=== PATIENT | female | born 1960 | race Caucasian/White ===

== ENCOUNTER 2023-04-27 17:01 | Emergency (ER) | payer SELFPAY ==
--- NOTE | ~2023-04-27 | US_ITS ---
EXAMINATION: US VENOUS ULTRASOUND WITH DOPPLER LOWER EXTREMITY, LEFT CLINICAL INFORMATION: Pain. COMPARISON: None available. TECHNIQUE: Ultrasound of the deep veins is performed from the hip to the calf with compression sonography and color and pulse Doppler assessment. Spectral analysis with color-flow imaging is performed. FINDINGS: There is normal venous compression and respiratory variation and augmented flow. The visualized common femoral vein, superficial femoral vein, profunda femoral vein, popliteal vein, and the trifurcation region shows no evidence of deep venous thrombosis. There is no significant popliteal fossa cyst. If the patient's symptoms persist, followup ultrasound in 5 days 7 days might be of value to exclude proximal propagation from a non-visualized calf vein. US/US venous duplex LE LT IMPRESSION: No DVT demonstrated in the left lower extremity.
--- NOTE | ~2023-04-27 | XR_ITS ---
EXAMINATION: XR CHEST CLINICAL INFORMATION: Difficulty breathing COMPARISON: None available. TECHNIQUE: 2 views of the chest were obtained. FINDINGS: Heart size is normal. Both lungs are clear. There is no pleural effusion. No pneumothorax. No acute osseous abnormality. There is shaped curvature of the thoracolumbar spine. There are right upper quadrant surgical clips. XR/XR chest 2V IMPRESSION: No acute cardiopulmonary disease.
--- NOTE | 2023-04-27 17:15 | ED_ITS ---
HPI - SOB/Dyspnea General Chief Complaint: General Medical Stated Complaint: diff breathing, COPD, L leg edema x3 weeks Time Seen by Provider: 04/27/23 17:13 Source: patient and EMS Mode of arrival: EMS Limitations: no limitations History of Present Illness HPI Narrative: 62yo female with history of HTN, chronic back pain, asthma/COPD, alcohol use disorder here with multiple complaints. Patient reports she is currently homeless. She has been drinking alcohol 2-3 pt of vodka daily. She went today to [facility] but when she got there they were close. She ran out of all of her home medications 4 days ago. She is not suicidal or homicidal. She is unsure if she is interested to go to detox or speak to our acid recovery operator is here today. She does not want to speak to our dependency case manager. She is complaining of chronic shortness of breath which she has had for years. There was no associated cough or fever chest pain with this. She has had some leg swelling in the left leg for the last few weeks with no known injury or trauma. It is worsened with walking on it and worsened at the end of the day. It is less swollen in the morning with waking. Related Data Allergies Allergy/AdvReac Type Severity Reaction Status Date / Time No Known Allergies Allergy Verified 04/27/23 17:19 Review of Systems 2 Review of Systems: Yes all other systems are reviewed and are negative Constitutional: Constitutional: Reports no additional constitutional complaints, Denies body ache(s), Denies chills, Denies fever(s), Denies headache(s) and Denies weakness Eyes: Eyes: Reports no additional eye complaints and Denies change in vision ENT: Reports system reviewed and no additional complaints, except as documented, Denies dizziness, Denies headache(s), Denies nasal congestion, Denies nasal discharge and Denies neck pain Cardiovascular: Cardiovascular: Reports no additional cardiovascular complaints, Denies chest pain, Denies leg edema and Reports dyspnea Respiratory: Respiratory: Reports no additional respiratory complaints, Denies cough and Reports dyspnea Gastrointestinal: Gastrointestinal: Reports no additional gastrointestinal complaints, Denies abdominal pain, Denies diarrhea, Denies nausea and Denies vomiting Genitourinary: Genitourinary: Reports no additional female genitourinary complaints and Denies urinary incontinence Musculoskeletal: Musculoskeletal: Reports no additional musculoskeletal complaints, Denies back pain, Denies arthralgias, Denies joint swelling, Denies neck pain, Denies numbness and Denies tingling Integumentary/Breasts: Skin/Breast: Reports system reviewed and no additional complaints, except as docu and Denies rash Neurologic: Reports system reviewed and no additional complaints, except as documented, Denies Abnormal speech present, Denies dizziness, Denies headache(s), Denies numbness, Denies tingling and Denies weakness PMF Past Medical History Attestation statement: The following information was validated with the patient. Source: old records reviewed and nursing notes reviewed Social History Social History Unable to assess alcohol history related to: Refusing to respond Smoked in Last 30 Days: Yes Use of substances other than those prescribed or required for medical reasons: Refusing to respond Advance Directives: No Advance Directives Information Provided: No Physical Exam 2 Vital Signs: Vital Signs: Last Vital Signs Temp 97.8 F 04/27/23 17:16 Pulse 75 04/27/23 19:13 Resp 20 04/27/23 19:13 BP 143/66 H 04/27/23 19:13 Pulse Ox 98 04/27/23 19:13 O2 Del Method Room Air 04/27/23 19:13 BMI result Body Mass Index 33.3 Const: General: cooperative, healthy appearing, comfortable and no acute distress Orientation/consciousness: patient oriented x3 Limitations: no limitations HEENT: Head: Yes normal to inspection Ears: hearing grossly normal bilaterally General nose exam: Normal external nose present Face and sinus: Yes normal facial exam Mouth: Normal oral and palatal mucosa present Throat: Yes posterior oropharynx normal Eyes: General: appearance normal, both eyes and all related structures P upils: Equal, round and reactive pupils present Neck: Neck: Yes normal visual inspection Chest: Chest palpation & inspection: normal inspection of the chest Resp: Effort & Inspection: normal respiratory effort Auscultation: clear to auscultation bilaterally Cardio: Rate: regular rate Rhythm: regular rhythm Peripheral pulses: P eripheral pulses 2+ throughout GI: Inspection: Yes normal to inspection Palpation (GI): Soft to palpation and nontender Auscultation: normal bowel sounds Back/Spine/Pelvis: Thoracic/Lumbar Spine: thoracic and lumbar spine normal to inspection Skin: General skin exam: no rashes or lesions noted Neuro: General: patient oriented x3, no focal motor deficits and normal sensation to monofilament Cranial nerves: Yes Equal, round and reactive pupils present Cognition (Neuro): normal cognition Speech: No Abnormal speech present Gait exam (Neuro): Normal gait present Motor exam (neuro): 5/5 motor strength present throughout Extrem: Other: I do not appreciate any swelling or redness. There are normal DP and PT pulses. There is mild diffuse tenderness. Normal sensation. Normal range of motion General: Yes normal to inspection Course Course Course Narrative: 1939-labs and imaging are unremarkable. Patient now would like to speak to 1 of our acid recovery operator is about potentially going to detox for alcohol use disorder. Reevaluation(s) Reevaluation #1: 0100-Pending eval for detox. Placed in physician observation pending disposition. Medications Administered Discontinued Medications Generic Name Dose Route Start Last Admin Trade Name Freq PRN Reason Stop Dose Admin Amlodipine Besylate 5 mg 04/27/23 17:23 04/27/23 19:14 Amlodipine Besylate 5 Mg Tablet PO 04/27/23 17:24 5 mg ONCE ONE Administration Protocol Gabapentin 300 mg 04/27/23 17:23 04/27/23 19:14 Gabapentin 300 Mg Capsule PO 04/27/23 17:24 300 mg ONCE ONE Administration Medical Decision Making Medical Decision Making [facility] Narrative: 62yo female with history of HTN, chronic back pain, asthma/COPD, alcohol use disorder here with multiple complaints. Patient reports she is currently homeless. She has been drinking alcohol 2-3 pt of vodka daily. She went today to [facility] but when she got there they were close. She ran out of all of her home medications 4 days ago. She is not suicidal or homicidal. She is unsure if she is interested to go to detox or speak to our acid recovery operator is here today. She does not want to speak to our dependency case manager. She is complaining of chronic shortness of breath which she has had for years. There was no associated cough or fever chest pain with this. She has had some leg swelling in the left leg for the last few weeks with no known injury or trauma. It is worsened with walking on it and worsened at the end of the day. It is less swollen in the morning with waking. VSS LS CTA I do not appreciate any swelling or redness. There are normal DP and PT pulses. There is mild diffuse tenderness. Normal sensation. Normal range of motion I am really unsure what the patient is looking for as she does not want to speak to our recovery team or dependency case manager and is relucatant to have any testing done here. She does want her meds refilled but she has no list, unsure of the names or doses and we have no fill history on her. She is agreeing to labs, EKG, CXR and US and we will attempt to find her med list by calling the pharmacy Differential Diagnosis Differential Diagnoses: The differential diagnosis associated with the presentation includes alcohol use disorder Low suspicion for PE, ACS, pneumonia, DVT, compartment syndrome, necrotizing fasciitis, cellulitis Admission/Observation Consideration of admission/observation: Escalation of care including admission/observation considered Lab Data MDM Lab Attestation statement: I reviewed the patient's lab results. Microcytic anemia-mild 04/27/23 17:37 04/27/23 17:37 Labs: Lab Results 04/27/23 Range/Units 17:37 WBC 5.9 (4.8-10.8) X10*3/uL RBC 4.22 (4.20-5.50) X10*6/uL Hgb 9.8 L (12.0-16.0) g/dl Hct 31.3 L (37.0-47.0) % MCV 74.2 L (80.0-98.0) fL MCH 23.2 L (27.0-33.0) pg MCHC 31.3 (31.0-35.0) g/dl RDW 20.1 H (11.0-16.0) % Plt Count 323 (160-400) X10*3/uL MPV 9.7 (9.4-12.3) fL Immature Gran % (Auto) 0.2 (0.0-0.4) % Neut % (Auto) 48.2 (45-73) % Lymph % (Auto) 35.2 (20-40) % Zavala % (Auto) 11.6 H (2-11) % Eos % (Auto) 4.1 H (0-4) % Baso % (Auto) 0.7 (0-2) % Lymph # (Auto) 2.1 (1.2-4.9) X10*3/uL Zavala # (Auto) 0.7 (0.1-1.2) X10*3/uL Eos # (Auto) 0.2 (0.0-0.4) X10*3/uL Baso # (Auto) 0.0 (0.0-0.2) X10*3/uL Abs Immat Gran (auto) 0.01 (0.00-0.03) X10*3/uL Absolute Neuts (auto) 2.8 (2.0-8.3) x10*3/uL Absolute Nucleated RBC 0.000 (0.0-0.012) X10*3/uL Nucleated RBC % (auto) 0.0 (0.0-0.2) /100WBC Sodium 140 (135-145) mmol/L Potassium 3.7 (3.3-5.1) mmol/L Chloride 104 (96-108) mmol/L Carbon Dioxide 27 (22-29) mmol/L Anion Gap 13 (12-20) BUN 8 L (9-16) mg/dL Creatinine 0.73 (0.5-1.4) mg/dL Estim Creat Clear Calc 87.7 Estimated GFR > 60 Random Glucose 92 (60-115) mg/dL Calcium 9.0 (8.4-10.2) mg/dL Magnesium 1.7 (1.6-2.6) mg/dL Total Bilirubin 0.2 (0.0-1.0) mg/dL Direct Bilirubin < 0.2 (0.0-0.5) mg/dL AST 18 (5-31) U/L ALT 11 (0-31) U/L Alkaline Phosphatase 143 H (39-117) U/L Troponin I High Sens 3.3 (<3.5-17.0) ng/L B-Natriuretic Peptide 20 (<100) pg/mL Total Protein 6.9 (6.5-8.0) g/dL Albumin 3.7 (3.5-5.0) g/dL Independent Interpretation I performed an independent interpretation of an: EKG and Plain X-Ray Interpretation: I independently reviewed the EKG which shows normal sinus rhythm with a rate of 73, normal ID, normal QRS normal QT I independently reviewed the x-ray and ultrasound and agree with the radiology report Radiology Impression Discussion of test interpretation with radiology: I have reviewed the radiologist's reading. Radiologist Impression: [facility] [place] [facility] [address] [place] [address] XRay Report Signed Patient: Kristen Montana MR#: [id number] : 1960 Acct:[id number] Age/Sex: 62 / F ADM Date: 04/27/23 Loc: .ED Attending Dr: Ordering Physician: Margaret Gross NP Date of Service: 04/27/23 Procedure(s): XR chest 2V Accession Number(s): [id number] cc: Margaret Gross NP~ EXAMINATION: XR CHEST CLINICAL INFORMATION: Difficulty breathing COMPARISON: None available. TECHNIQUE: 2 views of the chest were obtained. FINDINGS: Heart size is normal. Both lungs are clear. There is no pleural effusion. No pneumothorax. No acute osseous abnormality. There is shaped curvature of the thoracolumbar spine. There are right upper quadrant surgical clips. XR/XR chest 2V IMPRESSION: No acute cardiopulmonary disease. Launch?Image [address] [address] Ultrasound Report Signed Patient: Kristen Montana MR#: [id number] : 1960 Acct:[id number] Age/Sex: 62 / F ADM Date: 04/27/23 Loc: .ED Attending Dr: Ordering Physician: Margaret Gross NP Date of Service: 04/27/23 Procedure(s): US venous duplex LE LT Accession Number(s): [id number] cc: Physician,None ; Margaret Gross NP~ EXAMINATION: US VENOUS ULTRASOUND WITH DOPPLER LOWER EXTREMITY, LEFT CLINICAL INFORMATION: Pain. COMPARISON: None available. TECHNIQUE: Ultrasound of the deep veins is performed from the hip to the calf with compression sonography and color and pulse Doppler assessment. Spectral analysis with color-flow imaging is performed. FINDINGS: There is normal venous compression and respiratory variation and augmented flow. The visualized common femoral vein, superficial femoral vein, profunda femoral vein, popliteal vein, and the trifurcation region shows no evidence of deep venous thrombosis. There is no significant popliteal fossa cyst. If the patient's symptoms persist, followup ultrasound in 5 days 7 days might be of value to exclude proximal propagation from a non-visualized calf vein. US/US venous duplex LE LT IMPRESSION: No DVT demonstrated in the left lower extremity. Independent Historian Clinical information obtained from an independent historian. History obtained from or confirmed by: EMS Chronic Conditions Patient?s care impacted by: Hypertension Social Determinants Patient?s care significantly limited by Social Determinants of Health including: Alcoholism and drug addiction in family, Problems related to primary support group and Other Social Determinant of Health Discharge Plan Discharge Clinical Impression: Alcohol use disorder, Medication refill Patient Disposition: Still a Patient Instructions: Medicine Refill (ED), Alcohol Use Disorder (ED) Additional Instructions: Your lab work, EKG, chest x-ray are all reassuring. Your ultrasound does not show a blood clot. We do recommend that you follow-up with the primary care doctor. You were given a short supply of your daily medications. We did offer for you to speak to our acid recovery operator and our dependency case manager here but you declined this. Please return for any worsening signs Referrals: Physician,None [Primary Care Provider] - 1 week
[2023-04-27 17:16] VITALS: BP 162/52; BP 166/78; PULSE 75; PULSE 76; RESP 19; TEMP 36.6; O2SAT 96; BMI 33.3
--- NOTE | 2023-04-27 17:23 | ECG_ITS ---
Test Reason : DYSPNEA Blood Pressure : / mmHG Vent. Rate : 073 BPM Atrial Rate : 073 BPM P-R Int : 140 ms QRS Dur : 084 ms QT Int : 398 ms P-R-T Axes : 050 -17 059 degrees QTc Int : 438 ms Normal sinus rhythm Minimal voltage criteria for LVH, may be normal variant ( R in aVL ) Borderline ECG No previous ECGs available Referred By: Margaret Mcbride Electronically Signed By:JOSELYN MAYFIELD MD
[2023-04-27 17:41] LABS: MANUAL DIFF FLAG NO
[2023-04-27 17:42] LABS: Basophils Percent Auto 0.7 % (0-2); Eosinophils Absolute Auto 0.2 X10*3/uL (0.0-0.4); Eosinophils Percent Auto 4.1 % (0-4); Hematocrit 31.3 % (37.0-47.0); Hemoglobin 9.8 g/dl (12.0-16.0); Imm Gran Abs Auto 0.01 X10*3/uL (0.00-0.03); Imm Gran Pct Auto 0.2 % (0.0-0.4); Lymphocytes Absolute Auto 2.1 X10*3/uL (1.2-4.9); Lymphocytes Percent Auto 35.2 % (20-40); Mean Corpuscular HGB Conc 31.3 g/dl (31.0-35.0); Mean Corpuscular Hemoglobin 23.2 pg (27.0-33.0); Mean Corpuscular Volume 74.2 fL (80.0-98.0); Mean Platelet Volume 9.7 fL (9.4-12.3); Monocytes Absolute Auto 0.7 X10*3/uL (0.1-1.2); Monocytes Percent Auto 11.6 % (2-11); Neutrophils Absolute Auto 2.8 x10*3/uL (2.0-8.3); Neutrophils Percent Auto 48.2 % (45-73); Platelet Count 323 X10*3/uL (160-400); Red Blood Count 4.22 X10*6/uL (4.20-5.50); Red Cell Distribution Width 20.1 % (11.0-16.0); White Blood Count 5.9 X10*3/uL (4.8-10.8)
[2023-04-27 17:58] LABS: Alanine Aminotransferase 11 U/L (0-31); Albumin Level 3.7 g/dL (3.5-5.0); Alkaline Phosphatase 143 U/L (39-117); Anion Gap 13 (12-20); Aspartate Amino Transferase 18 U/L (5-31); Bilirubin Direct < 0.2 mg/dL (0.0-0.5); Bilirubin Total 0.2 mg/dL (0.0-1.0); Blood Urea Nitrogen 8 mg/dL (9-16); Carbon Dioxide 27 mmol/L (22-29); Chloride 104 mmol/L (96-108); Creatinine Clr Calc Pharmacy 87.7; Estimated Glomerular Filt Rate > 60; Glucose Random 92 mg/dL (60-115); Magnesium 1.7 mg/dL (1.6-2.6); Potassium 3.7 mmol/L (3.3-5.1); Sodium 140 mmol/L (135-145); Total Protein 6.9 g/dL (6.5-8.0)
[2023-04-27 18:04] LABS: B Type Natriuretic Peptide 20 pg/mL (<100)
[2023-04-27 18:05] LABS: Troponin-I High Sensitivity 3.3 ng/L (<3.5-17.0)
[2023-04-27 19:13] VITALS: BP 143/66; PULSE 75; RESP 20; O2SAT 98
[2023-04-27] MEDS: Gabapentin 300 MG CAPSULE PO (19:14)
[2023-04-27] MEDS: amLODIPine Besylate 5 MG TABLET PO (19:14)
--- NOTE | 2023-04-27 22:44 | PC.NURSE ---
pt resting comfortably resp even and unlabored. nad. awaiting to be seen by care team.
[2023-04-28 06:00] VITALS: BP 121/43; PULSE 66; RESP 16; TEMP 36.7; O2SAT 90
--- NOTE | 2023-04-28 06:38 | PC.NURSE ---
pt changed over into hospital gown placed in pod locker by pct. pt denies si/hi awaiting care team eval.
[2023-04-28 07:58] VITALS: BP 132/64; PULSE 63; RESP 18; TEMP 36.8; O2SAT 93
[2023-04-28 09:02] LABS: Appearance Urine Clear; Color Urine Yellow; Glucose Urine UA Negative (Negative); Leukocyte Esterase Urine Negative (Negative); Nitrite Urine Negative (Negative); Urine Blood Negative (Negative); Urine Ketones Negative (Negative); Urine Protein Negative (Neg-Trace)
[2023-04-28 09:04] LABS: Amphetamine Screen Urine Not Detected (Not Detect); Barbiturates, Urine Not Detected (Not Detect); Benzodiazepines Screen Urine Not Detected (Not Detect); Cannabinoid Screen Urine Not Detected (Not Detect); Cocaine Screen Urine Not Detected (Not Detect); Fentanyl, urine Not Detected (Not Detect); Opiate Screen Urine Not Detected (Not Detect); Phencyclidine Screen Urine Not Detected (Not Detect)
[2023-04-28 09:07] LABS: Bacteria Urine None Seen (None Seen); Hyaline Casts Urine 0-2 /LPF (0-2); RBC Urine 0-2 /HPF (0-2); Squamous Epithelial Cell Urine 0-2 /HPF (0-2); WBC Urine 0-5 /HPF (0-5)
[2023-04-28 10:16] VITALS: BP 137/53; PULSE 74; RESP 14; TEMP 36.7; O2SAT 94
--- NOTE | 2023-04-28 11:15 | PC.NURSE ---
PT SEEN BY RECOVERY TEAM. PT AWARE OF PLAN OF CARE.
[2023-04-28 12:00] VITALS: BP 137/53; PULSE 74; RESP 14; TEMP 36.7; O2SAT 94
--- NOTE | 2023-04-28 12:15 | MHC.RECOVRN ---
Met with pt in ED11 after consult placed to CARE Team for AT[facility]. Pt medically cleared. Pt had presented to the ED reporting difficulty getting ait into lungs and edema in legs. Pt sitting in bed, awake, alert, easily engages in conversation, irritable. Pt unsure what she is looking for as far as plans for discharge. Pt reports alcohol use, 1/2-1 pint vodka every other day. Last use 2 days ago. Pt not currently experiencing withdrawal symptoms. Pt reports having been to [facility] approx 3 weeks ago. Pt is not interest in AUD tx at this time, reports she is looking for housing. Discussed options including [facility], shelters, CHD programs. Pt reports she has been to [facility] in the past and was able to shower and spend the night. Pt would like to present as a walk in on a first come first served basis to [facility]. Pt provided with AUD resources, including ATS facilities. Pt also provided with the Patient Resource Booklet. Pt denies other questions or concerns at this time. Discussed with RN and provider. Plan to dc patient to residential and transport via [employer].
== END 2023-04-28 12:26 | disposition home or self-care (01) ==
PROVIDERS: Nurse Practitioner Family; Emergency Provider Internal Medicine
DX: Z76.0 Encounter for issue of repeat prescription (principal); F10.90 Alcohol use, unspecified, uncomplicated; I10 Essential (primary) hypertension; J44.9 Chronic obstructive pulmonary disease, unspecified; Z59.02 Unsheltered homelessness
CPT/HCPCS: 36415; 71046; 80048; 80076; 80307; 81001; 83735; 83880; 84484; 85025; 93005; 93971; 99285

== ENCOUNTER → 2023-04-27 17:23 | Outpatient (BNV) | payer SELFPAY | PROVIDERS: Emergency Provider Internal Medicine; Visit Provider Internal Medicine Cardiovascular Disease | DX: R06.00 Dyspnea, unspecified (principal) | CPT/HCPCS: 93010 ==